=== PATIENT | female | born 1935 | race Caucasian/White ===

== ENCOUNTER 2018-07-19 13:10 | Inpatient (IN) | payer OTHER ==
[~2018-07-19] VITALS: Ht 170.2 cm; Wt 52.1 kg
[2018-07-19] MEDS ORDERED: SODIUM CHLORIDE FLUSH 10ML SYR IVF ONE (14:00)
[2018-07-19] MEDS ORDERED: FUROSEMIDE 40 MG/4 ML IV ONE (14:00)
[2018-07-19] MEDS ORDERED: ASPIRIN 81 MG TABLET CHEW PO ONE (14:00)
[2018-07-19 14:05] LABS: BASOPHILS # (AUTO) 0.02 x10^3/uL (0-0.1); BASOPHILS % (AUTO) 0 % (0-1); EOSINOPHILS # (AUTO) 0.06 x10^3/uL (0-0.4); EOSINOPHILS % (AUTO) 1 % (1-7); LYMPHOCYTES # (AUTO) 0.56 x10^3/uL (1-3.4); LYMPHOCYTES % (AUTO) 10 % (22-44); MD NO; MEAN CORPUSCULAR HEMOGLOBIN 28.4 pg (27.0-34.8); MEAN CORPUSCULAR HGB CONC 32.2 g/dL (32.4-35.8); MEAN CORPUSCULAR VOLUME 88.2 fL (80-100); MEAN PLATELET VOLUME 7.8 fL (7.4-10.4); MONOCYTES # (AUTO) 0.47 x10^3/uL (0.2-0.8); MONOCYTES % (AUTO) 8 % (2-9); NEUTROPHILS # (AUTO) 4.77 x10^3/uL (1.8-6.8); NEUTROPHILS % (AUTO) 81 % (42-75); PLATELET COUNT 213 x10^3/uL (130-400); RED CELL DISTRIBUTION WIDTH 16.9 % (9.6-15.2)
[2018-07-19 14:17] LABS: INTERNATIONAL NORMALIZED RATIO 0.98 (0.93-1.1); PROTHROMBIN TIME 10.1 Seconds (9.6-11.5)
[2018-07-19 14:19] LABS: ALANINE AMINOTRANSFERASE 39 U/L (12-78); ALBUMIN 3.1 g/dL (3.4-5.0); ANION GAP 2 mmol/L (5-15); CALCIUM 8.4 mg/dL (8.5-10.1); CHLORIDE 112 mmol/L (98-107); CREATININE 0.76 mg/dL (0.55-1.02)
[2018-07-19 14:23] LABS: ALKALINE PHOSPHATASE 159 U/L (45-117); BILIRUBIN,TOTAL 0.6 mg/dL (0.2-1.0); TOTAL PROTEIN 6.2 g/dL (6.4-8.2); TROPONIN I 0.037 ng/mL (0.000-0.045)
[2018-07-19] MEDS ORDERED: ASPIRIN 81 MG TABLET CHEW ONE (15:20)
[2018-07-19] MEDS ORDERED: FUROSEMIDE 40 MG/4 ML ONE (15:20)
[2018-07-19] MEDS ORDERED: ASPI-515 PO (15:28)
[2018-07-19] MEDS ORDERED: CARV6.2512 PO (15:28)
[2018-07-19] MEDS ORDERED: ACETAMINOPHEN 325 MG TABLET PO PRN (16:00)
[2018-07-19] MEDS ORDERED: ONDANSETRON ODT 4 MG PO PRN (16:00)
[2018-07-19 16:30] VITALS: BP 146/92
[2018-07-19] MEDS: HEPARIN 5,000 UNITS/ML, 1ML SQ SCH (16:35)
[2018-07-19] MEDS ORDERED: LISI5TAB7 PO (16:49)
[2018-07-19] MEDS ORDERED: NAPR220C2 PO (16:49)
[2018-07-19] MEDS ORDERED: OMEG1CAP23 PO (16:49)
[2018-07-19 17:39] VITALS: BP 170/93
[2018-07-19 18:15] VITALS: BP 151/84
[2018-07-19] MEDS ORDERED: LEVO25TA4 PO (18:39)
[2018-07-19 18:44] LABS: TROPONIN I 0.037 ng/mL (0.000-0.045)
[2018-07-19] MEDS ORDERED: MAGNESIUM SULFATE PMX 2GM/50ML 50 ML IV ONE (20:30)
[2018-07-19] MEDS ORDERED: CARVEDILOL 6.25 MG TABLET PO SCH (21:00)
[2018-07-19] MEDS ORDERED: LISINOPRIL 5 MG TABLET PO SCH (21:00)
[2018-07-19 21:59] VITALS: BP 116/69
[2018-07-20] VITALS (7 sets, daily range): BP systolic 108–149; BP diastolic 67–84
[2018-07-20] MEDS: HEPARIN 5,000 UNITS/ML, 1ML SQ SCH ×3 (00:04→17:19)
[2018-07-20 01:18] LABS: TROPONIN I 0.038 ng/mL (0.000-0.045)
[2018-07-20 05:31] LABS: BASOPHILS # (AUTO) 0.02 x10^3/uL (0-0.1); BASOPHILS % (AUTO) 1 % (0-1); EOSINOPHILS % (AUTO) 2 % (1-7); LYMPHOCYTES # (AUTO) 0.83 x10^3/uL (1-3.4); LYMPHOCYTES % (AUTO) 18 % (22-44); MD NO; MEAN CORPUSCULAR HEMOGLOBIN 28.7 pg (27.0-34.8); MEAN CORPUSCULAR HGB CONC 32.9 g/dL (32.4-35.8); MEAN CORPUSCULAR VOLUME 87.2 fL (80-100); MEAN PLATELET VOLUME 7.9 fL (7.4-10.4); MONOCYTES # (AUTO) 0.41 x10^3/uL (0.2-0.8); MONOCYTES % (AUTO) 9 % (2-9); NEUTROPHILS # (AUTO) 3.27 x10^3/uL (1.8-6.8); NEUTROPHILS % (AUTO) 71 % (42-75); PLATELET COUNT 166 x10^3/uL (130-400); RED BLOOD COUNT 3.95 x10^6/uL (3.82-5.3)
[2018-07-20 05:34] LABS: ALBUMIN 2.5 g/dL (3.4-5.0); ANION GAP 3 mmol/L (5-15); CALCIUM 8.1 mg/dL (8.5-10.1); CHLORIDE 108 mmol/L (98-107)
[2018-07-20 05:48] LABS: ALANINE AMINOTRANSFERASE 29 U/L (12-78); ALKALINE PHOSPHATASE 128 U/L (45-117); BILIRUBIN,TOTAL 0.7 mg/dL (0.2-1.0); CREATININE 0.66 mg/dL (0.55-1.02); TOTAL PROTEIN 5.3 g/dL (6.4-8.2); TRIGLYCERIDES 63 mg/dL (50-200); VLDL CHOLESTEROL 13 mg/dL (0-25)
[2018-07-20 05:49] LABS: CHOLESTEROL, TOTAL 159 mg/dL (140-239)
[2018-07-20 05:52] LABS: CHOL/HDL RATIO 4.4; HDL CHOL % 23 % (28-40); HDL CHOLESTEROL (DIRECT) 36 mg/dL (40-60); LDL CHOLESTEROL,CALCULATED 110 mg/dL (54-169); LDL/HDL RATIO 3.1 (0.5-3.0)
[2018-07-20] MEDS ORDERED: REGADENOSON 0.4 MG/5 ML SYRINGE ONE (08:04)
[2018-07-20] MEDS ORDERED: FUROSEMIDE 40 MG/4 ML IV SCH (09:00)
[2018-07-20] MEDS ORDERED: LISINOPRIL 5 MG TABLET PO SCH (09:00)
[2018-07-20] MEDS ORDERED: CARVEDILOL 6.25 MG TABLET PO SCH (09:00)
[2018-07-20] MEDS: ASPIRIN 81 MG TABLET EC PO SCH (09:34)
[2018-07-20] MEDS: CARVEDILOL 12.5 MG TABLET PO SCH (17:19)
[2018-07-21] MEDS: HEPARIN 5,000 UNITS/ML, 1ML SQ SCH ×3 (00:31→17:01)
[2018-07-21 01:49] VITALS: BP 144/79
[2018-07-21] MEDS: CARVEDILOL 12.5 MG TABLET PO SCH ×2 (06:26→17:01)
[2018-07-21 07:00] VITALS: BP 134/84
[2018-07-21] MEDS ORDERED: LEVOTHYROXINE 75 MCG TABLET PO SCH (09:00)
[2018-07-21 09:22] VITALS: BP 155/88
[2018-07-21] MEDS: LISINOPRIL 5 MG TABLET PO SCH (09:23)
[2018-07-21] MEDS: ASPIRIN 81 MG TABLET EC PO SCH (09:24)
[2018-07-21] MEDS: POTASSIUM CHLORIDE 20 MEQ TAB.ER.PRT PO SCH (09:24)
[2018-07-21] MEDS: FUROSEMIDE 40 MG TABLET PO SCH (09:24)
[2018-07-21 13:05] VITALS: BP 127/77
[2018-07-21 16:59] VITALS: BP 143/81
[2018-07-21 19:41] VITALS: BP 104/55
[2018-07-22 01:22] VITALS: BP 115/75
[2018-07-22] MEDS: HEPARIN 5,000 UNITS/ML, 1ML SQ SCH ×3 (01:32→20:32)
[2018-07-22 05:14] LABS: ANION GAP 5 mmol/L (5-15); CALCIUM 8.3 mg/dL (8.5-10.1); CHLORIDE 103 mmol/L (98-107); CREATININE 0.54 mg/dL (0.55-1.02)
[2018-07-22 05:41] VITALS: BP 132/71
[2018-07-22] MEDS: LEVOTHYROXINE 50 MCG TABLET PO SCH (05:45)
[2018-07-22] MEDS: CARVEDILOL 12.5 MG TABLET PO SCH ×2 (05:46→17:46)
[2018-07-22] MEDS ORDERED: REGADENOSON 0.4 MG/5 ML SYRINGE ONE (07:57)
[2018-07-22 08:49] LABS: HEMOGLOBIN A1C 6.2 % (4.2-6.3)
[2018-07-22 08:52] VITALS: BP 134/77
[2018-07-22] MEDS: LISINOPRIL 5 MG TABLET PO SCH (11:08)
[2018-07-22] MEDS: ASPIRIN 81 MG TABLET EC PO SCH (11:08)
[2018-07-22] MEDS: SPIRONOLACTONE 25 MG TABLET PO SCH (11:08)
[2018-07-22] MEDS: POTASSIUM CHLORIDE 20 MEQ TAB.ER.PRT PO SCH ×2 (11:09→18:02)
[2018-07-22] MEDS: FUROSEMIDE 40 MG TABLET PO SCH (11:09)
[2018-07-22 11:14] VITALS: BP 133/84
[2018-07-22 12:30] VITALS: BP 135/85
[2018-07-22] MEDS ORDERED: SPIR25TA PO (12:51)
[2018-07-22] MEDS ORDERED: LEVO50TA PO (12:51)
[2018-07-22] MEDS ORDERED: POTA20TA6 PO (12:51)
[2018-07-22] MEDS ORDERED: SIMV40TA PO (12:57)
[2018-07-22] MEDS ORDERED: FUROSEMIDE 40 MG/4 ML IV SCH (17:00)
[2018-07-22] MEDS: FUROSEMIDE 40 MG/4 ML IV SCH (17:47)
[2018-07-22 20:27] VITALS: BP 129/82
[2018-07-23 02:24] VITALS: BP 138/86
[2018-07-23] MEDS: HEPARIN 5,000 UNITS/ML, 1ML SQ SCH ×3 (04:30→21:06)
[2018-07-23] MEDS: CARVEDILOL 12.5 MG TABLET PO SCH ×2 (05:08→18:15)
[2018-07-23] MEDS: LEVOTHYROXINE 50 MCG TABLET PO SCH (05:08)
[2018-07-23 05:14] LABS: ANION GAP 6 mmol/L (5-15); CALCIUM 8.5 mg/dL (8.5-10.1); CHLORIDE 99 mmol/L (98-107)
[2018-07-23 07:04] VITALS: BP 129/76
[2018-07-23 08:18] VITALS: BP 110/70
[2018-07-23] MEDS: LISINOPRIL 5 MG TABLET PO SCH (08:24)
[2018-07-23] MEDS: SPIRONOLACTONE 25 MG TABLET PO SCH (08:24)
[2018-07-23] MEDS: FUROSEMIDE 40 MG/4 ML IV SCH ×2 (08:24→18:15)
[2018-07-23] MEDS: POTASSIUM CHLORIDE 20 MEQ TAB.ER.PRT PO SCH (08:24)
[2018-07-23] MEDS: ASPIRIN 81 MG TABLET EC PO SCH (08:24)
[2018-07-23 13:59] VITALS: BP 114/71
[2018-07-23 18:17] VITALS: BP 132/80
[2018-07-24] MEDS: HEPARIN 5,000 UNITS/ML, 1ML SQ SCH ×3 (05:16→20:06)
[2018-07-24] MEDS: LEVOTHYROXINE 50 MCG TABLET PO SCH (05:17)
[2018-07-24] MEDS: CARVEDILOL 12.5 MG TABLET PO SCH ×2 (05:17→18:05)
[2018-07-24 05:37] LABS: CHLORIDE 95 mmol/L (98-107)
[2018-07-24 05:45] LABS: ANION GAP 6 mmol/L (5-15); CALCIUM 9.7 mg/dL (8.5-10.1); CREATININE 0.56 mg/dL (0.55-1.02)
[2018-07-24 07:06] VITALS: BP 115/66
[2018-07-24] MEDS: SPIRONOLACTONE 25 MG TABLET PO SCH (09:01)
[2018-07-24] MEDS: POTASSIUM CHLORIDE 20 MEQ TAB.ER.PRT PO SCH (09:01)
[2018-07-24] MEDS: FUROSEMIDE 40 MG/4 ML IV SCH ×2 (09:01→18:05)
[2018-07-24] MEDS: LISINOPRIL 5 MG TABLET PO SCH (09:01)
[2018-07-24] MEDS: ASPIRIN 81 MG TABLET EC PO SCH (09:01)
[2018-07-24 12:48] VITALS: BP 98/58
[2018-07-24] MEDS ORDERED: LIDOCAINE-MPF 2%, 2ML ONE (15:02)
[2018-07-24 18:00] VITALS: BP 113/75
[2018-07-24 20:14] VITALS: BP 95/60
[2018-07-25] VITALS (15 sets, daily range): BP systolic 77–105; BP diastolic 30–68
[2018-07-25] MEDS: HEPARIN 5,000 UNITS/ML, 1ML SQ SCH ×3 (04:10→20:06)
[2018-07-25] MEDS: LEVOTHYROXINE 50 MCG TABLET PO SCH (05:58)
[2018-07-25] MEDS: CARVEDILOL 12.5 MG TABLET PO SCH ×2 (05:58→15:18)
[2018-07-25] MEDS: LISINOPRIL 5 MG TABLET PO SCH (07:55)
[2018-07-25] MEDS ORDERED: SODIUM CHLORIDE 0.9%, 500ML IVBOLUS ONE ×2 (08:00→10:00)
[2018-07-25] MEDS ORDERED: CARV6.2512 PO (09:26)
[2018-07-25] MEDS: FUROSEMIDE 40 MG/4 ML IV SCH ×2 (09:55→13:22)
[2018-07-25] MEDS: SPIRONOLACTONE 25 MG TABLET PO SCH (09:55)
[2018-07-25] MEDS ORDERED: SODIUM CHLORIDE 0.9% 1,000ML IVBOLUS ONE (11:00)
[2018-07-25] MEDS ORDERED: POTASSIUM CHLORIDE 20 MEQ in SODIUM CHLORIDE 0.9% 1,000 ML IV ONE (13:00)
[2018-07-25] MEDS: ASPIRIN 81 MG TABLET EC PO SCH (13:23)
[2018-07-25] MEDS: POTASSIUM CHLORIDE 20 MEQ TAB.ER.PRT PO SCH (13:37)
[2018-07-25 13:39] LABS: MICROSCOPIC NOT IND
[2018-07-25 15:07] LABS: CLOSTRIDIUM DIFFICILE ANTIGEN POSITIVE; CLOSTRIDIUM DIFFICILE TOXIN NEGATIVE (Negative)
[2018-07-26 02:00] VITALS: BP 98/70
[2018-07-26 02:49] VITALS: BP 92/61
[2018-07-26] MEDS: HEPARIN 5,000 UNITS/ML, 1ML SQ SCH ×3 (04:18→20:46)
[2018-07-26] MEDS: CARVEDILOL 12.5 MG TABLET PO SCH (05:29)
[2018-07-26] MEDS: LEVOTHYROXINE 50 MCG TABLET PO SCH (05:30)
[2018-07-26 05:44] LABS: ANION GAP 5 mmol/L (5-15); CALCIUM 8.6 mg/dL (8.5-10.1); CHLORIDE 105 mmol/L (98-107)
[2018-07-26 05:48] LABS: BASOPHILS # (AUTO) 0.01 x10^3/uL (0-0.1); BASOPHILS % (AUTO) 0 % (0-1); EOSINOPHILS # (AUTO) 0.07 x10^3/uL (0-0.4); EOSINOPHILS % (AUTO) 2 % (1-7); LYMPHOCYTES # (AUTO) 0.72 x10^3/uL (1-3.4); LYMPHOCYTES % (AUTO) 15 % (22-44); MD NO; MEAN CORPUSCULAR HEMOGLOBIN 28.7 pg (27.0-34.8); MEAN CORPUSCULAR HGB CONC 33.1 g/dL (32.4-35.8); MEAN CORPUSCULAR VOLUME 86.7 fL (80-100); MONOCYTES # (AUTO) 0.58 x10^3/uL (0.2-0.8); MONOCYTES % (AUTO) 12 % (2-9); NEUTROPHILS # (AUTO) 3.59 x10^3/uL (1.8-6.8); NEUTROPHILS % (AUTO) 72 % (42-75); PLATELET COUNT 211 x10^3/uL (130-400); RED BLOOD COUNT 3.61 x10^6/uL (3.82-5.3); RED CELL DISTRIBUTION WIDTH 17.3 % (9.6-15.2)
[2018-07-26 05:52] LABS: CREATININE 0.58 mg/dL (0.55-1.02); TROPONIN I < 0.015 ng/mL (0.000-0.045)
[2018-07-26 07:24] VITALS: BP 115/68
[2018-07-26] MEDS: POTASSIUM CHLORIDE 20 MEQ TAB.ER.PRT PO SCH (09:35)
[2018-07-26] MEDS: FUROSEMIDE 40 MG/4 ML IV SCH (09:35)
[2018-07-26] MEDS: ASPIRIN 81 MG TABLET EC PO SCH (09:35)
[2018-07-26] MEDS: LISINOPRIL 5 MG TABLET PO SCH (09:36)
[2018-07-26] MEDS: SPIRONOLACTONE 25 MG TABLET PO SCH (09:36)
[2018-07-26 12:56] VITALS: BP 116/72
[2018-07-26 18:08] VITALS: BP 126/73
[2018-07-26] MEDS: CARVEDILOL 3.125 MG TABLET PO SCH (18:13)
[2018-07-26 19:16] VITALS: BP 115/64
[2018-07-27 02:09] VITALS: BP 109/66
[2018-07-27] MEDS: HEPARIN 5,000 UNITS/ML, 1ML SQ SCH ×2 (04:18→12:00)
[2018-07-27 05:49] VITALS: BP 120/64
[2018-07-27] MEDS: CARVEDILOL 3.125 MG TABLET PO SCH (05:50)
[2018-07-27] MEDS: LEVOTHYROXINE 50 MCG TABLET PO SCH (05:50)
[2018-07-27 07:00] VITALS: BP 110/70
[2018-07-27] MEDS: ASPIRIN 81 MG TABLET EC PO SCH (10:45)
[2018-07-27] MEDS ORDERED: CARV3.1212 PO (13:01)
[2018-07-27 13:35] VITALS: BP 108/71
== END 2018-07-27 16:08 | DRG 291 ==
LOC: ED 14:51 → EDIP 15:00 → 5SO 15:41
PROVIDERS: ADMIT Family Medicine; ATTEND Internal Medicine
PROC: 0W993ZZ Drainage of Right Pleural Cavity, Percutaneous Approach (ICD-10-PCS; 2018-07-24)
PROC: 0T9B70Z Drainage of Bladder with Drainage Device, Via Natural or Artificial Opening (ICD-10-PCS; principal; 2018-07-25)
DX: I11.0 Hypertensive heart disease with heart failure (principal); E43 Unspecified severe protein-calorie malnutrition; J96.10 Chronic respiratory failure, unspecified whether with hypoxia or hypercapnia; Z68.1 Body mass index [BMI] 19.9 or less, adult; I31.3 Pericardial effusion (noninflammatory); I47.2 Ventricular tachycardia; I50.9 Heart failure, unspecified; Z99.81 Dependence on supplemental oxygen; Z88.0 Allergy status to penicillin; Z88.2 Allergy status to sulfonamides; E03.9 Hypothyroidism, unspecified; E16.2 Hypoglycemia, unspecified; E78.5 Hyperlipidemia, unspecified; F03.90 Unspecified dementia, unspecified severity, without behavioral disturbance, psychotic disturbance, mood disturbance, and anxiety; I20.9 Angina pectoris, unspecified; I25.2 Old myocardial infarction; I08.0 Rheumatic disorders of both mitral and aortic valves; I50.43 Acute on chronic combined systolic (congestive) and diastolic (congestive) heart failure; J44.9 Chronic obstructive pulmonary disease, unspecified
CPT/HCPCS: 32555; 36415; 71045; 78452; 80048; 80053; 80061; 81003; 82962; 83036; 83735; 83880; 84100; 84439; 84443; 84484; 85025; 85610; 85730; 87324; 93005; 93017; 93306; 93880; 99285; G0378; J1644; J1940; J2785; J3480; J3490; A9502; C9898; J3475; J7030; J7040